=== PATIENT | male | born 1955 | race Caucasian/White ===

== ENCOUNTER 2022-01-23 12:46 | Inpatient (IN) ==
[2022-01-23] MEDS ORDERED: Sodium Bicarbonate 50 MEQ/50 ML VIAL IVC ONE (14:01)
[2022-01-23] MEDS ORDERED: Tranexamic Acid 1,000 MG/10 ML VIAL IR ONE (14:01)
[2022-01-23] MEDS ORDERED: *HR* Heparin 10,000 UNIT/10 ML VIAL IR ONE (14:01)
[2022-01-23] MEDS ORDERED: Albumin Human 25% 25 GM/100 ML IV.SOLN IVPB ONE (14:01)
[2022-01-23] MEDS ORDERED: *HR* Phenylephrine 10 MG/ML VIAL IVC ONE (14:01)
[2022-01-23] MEDS ORDERED: Mannitol 25% vial 12.5 GM/50 ML VIAL IVPB ONE (14:01)
[2022-01-23] MEDS ORDERED: Lidocaine 2% Syringe 100 MG/5 ML IVP ONE (14:01)
[2022-01-23] MEDS ORDERED: *HR* Magnesium Sulfate 2 GM/50 ML PIGGYBACK IVPB ONE (14:01)
[2022-01-23] MEDS ORDERED: Heparin 1,000 UNITS/500 mL IV.SOLN IR ONE (14:01)
[2022-01-23] MEDS ORDERED: Nitroglycerin 1,000 MCG/5 ML VIAL IV ONE (14:14)
[2022-01-23] MEDS ORDERED: Iopamidol - 370 200 ML INFUS..BTL ONE (14:14)
[2022-01-23] MEDS ORDERED: *HR* Heparin 10,000 UNIT/10 ML VIAL ONE (14:14)
[2022-01-23] MEDS ORDERED: 0.9 % Sodium Chloride 2,000 ML ONE (14:14)
[2022-01-23] MEDS ORDERED: Heparin 1,000 UNITS/500 mL 500 ML ONE ×2 (14:14→15:18)
[2022-01-23] MEDS ORDERED: *HR* FentaNYL (PF) 100 MCG/2 ML VIAL ONE (14:40)
[2022-01-23] MEDS ORDERED: *HR* Midazolam HCl 2 MG/2 ML VIAL ONE (14:40)
[2022-01-23] MEDS ORDERED: Perflutren Lipid Microsphere 1.3 ML in 0.9 % Sodium Chloride 8.7 ML IVP PRN ×2 (15:39→16:00)
[2022-01-23] MEDS ORDERED: D5% in Water 250 ML ONE (15:39)
[2022-01-23] MEDS ORDERED: *HR* Norepinephrine 4 MG/4 ML VIAL IVC ONE (15:39)
[2022-01-23] MEDS ORDERED: DOBUTamine 1,000 MG/250 ML BAG ONE ×2 (15:46→15:48)
[2022-01-23] MEDS ORDERED: NiCARdipine 2.5 MG/10 ML Syringe IVPB ONE (15:46)
[2022-01-23] MEDS ORDERED: *HR* Midazolam HCl 5 MG/5 ML VIAL IVP ONE (15:50)
[2022-01-23] MEDS ORDERED: *HR* FentaNYL (PF) 1,000 MCG/20 ML VIAL ONE (15:50)
[2022-01-23] MEDS ORDERED: *HR* Rocuronium Bromide 50 MG/5 ML VIAL ONE (15:55)
[2022-01-23] MEDS ORDERED: niCARdipine 20 MG/200 ML MLS IVC ONE (15:55)
[2022-01-23] MEDS ORDERED: Tranexamic Acid 1,000 MG/10 ML VIAL ONE (15:56)
[2022-01-23] MEDS ORDERED: *HR* Etomidate 20 MG/10 ML AMPUL IVP ONE (15:56)
[2022-01-23] MEDS ORDERED: Papaverine 60 MG/2 ML VIAL IVP ONE (15:57)
[2022-01-23] MEDS ORDERED: Protamine Sulfate 250 MG/25 ML VIAL IVP ONE (15:57)
[2022-01-23] MEDS ORDERED: Calcium Gluconate 1,000 MG/10 ML VIAL ONE (15:58)
[2022-01-23] MEDS ORDERED: CeFAZolin Syr 2,000MG/20 ML 2,000 MG/20 ML SYRINGE IVPB ONE (16:00)
[2022-01-23] MEDS ORDERED: Aspirin 81 MG TAB.CHEW PO ONE (16:01)
[2022-01-23] MEDS ORDERED: Norepinephrine 4 MG in 0.9 % Sodium Chloride 250 ML IVC PRN (16:09)
[2022-01-23] MEDS ORDERED: Chlorhexidine Rinse 15 ML MOUTHWASH MM ONE (16:15)
[2022-01-23] MEDS ORDERED: Heparin 15,000 UNIT in 0.9 % Sodium Chloride 500 ML IV ONE (16:15)
[2022-01-23] MEDS ORDERED: Buckersberg's Blood Cardioplegia PF ONE (16:15)
[2022-01-23] MEDS ORDERED: del Nido Cardioplegia Solution PF ONE ×2 (16:15)
[2022-01-23] MEDS ORDERED: Naloxone 0.4 MG/ML INJ IVP PRN (16:26)
[2022-01-23] MEDS ORDERED: Calcium Gluconate 1gm/50mL 1 GM/50 ML BAG IVPB PRN (16:26)
[2022-01-23] MEDS ORDERED: Insulin Regular, Human 100 UNIT/ML IV PRN (16:26)
[2022-01-23] MEDS ORDERED: Acetaminophen 325 MG TABLET PO PRN (16:26)
[2022-01-23] MEDS ORDERED: *HR* Dextrose 50 % in Water (Syg) 50 ML SYRINGE IVP PRN (16:26)
[2022-01-23 16:56] LABS: ABG Base Excess -3 mEq/L (-2 to 3); ABG Chloride 106 mEq/L (98-107); ABG Glucose 99 mg/dL (60-95); ABG HCO3 21 mEq/L (21-27); ABG Ionized Calcium 1.06 mmol/L (1.15-1.35); ABG Oxygen Saturation 100 % (95-98); ABG PCO2 33 mmHg (35-45); ABG PH 7.41 pH Units (7.32-7.45); ABG PO2 460 mmHg (85-104); ABG TCO2 22 mEq/L (20-26)
[2022-01-23 17:57] LABS: ABG Base Excess -3 mEq/L (-2 to 3); ABG Chloride 107 mEq/L (98-107); ABG Glucose 131 mg/dL (60-95); ABG HCO3 23 mEq/L (21-27); ABG Ionized Calcium 1.14 mmol/L (1.15-1.35); ABG Oxygen Saturation 97 % (95-98); ABG PCO2 46 mmHg (35-45); ABG PH 7.31 pH Units (7.32-7.45); ABG PO2 100 mmHg (85-104); ABG TCO2 25 mEq/L (20-26)
[2022-01-23] MEDS ORDERED: Vancomycin 1,000 MG VIAL ONE (18:06)
[2022-01-23 19:00] LABS: ABG Base Excess 4 mEq/L (-2 to 3); ABG Chloride 102 mEq/L (98-107); ABG Glucose 124 mg/dL (60-95); ABG HCO3 27 mEq/L (21-27); ABG Ionized Calcium 0.85 mmol/L (1.15-1.35); ABG Oxygen Saturation 100 % (95-98); ABG PCO2 35 mmHg (35-45); ABG PH 7.49 pH Units (7.32-7.45); ABG PO2 549 mmHg (85-104); ABG TCO2 28 mEq/L (20-26)
[2022-01-23 19:31] LABS: ABG Base Excess 1 mEq/L (-2 to 3); ABG Chloride 102 mEq/L (98-107); ABG Glucose 161 mg/dL (60-95); ABG HCO3 25 mEq/L (21-27); ABG Ionized Calcium 1.07 mmol/L (1.15-1.35); ABG Oxygen Saturation 100 % (95-98); ABG PCO2 40 mmHg (35-45); ABG PH 7.41 pH Units (7.32-7.45); ABG PO2 558 mmHg (85-104); ABG TCO2 27 mEq/L (20-26)
[2022-01-23] MEDS ORDERED: Vancomycin 1,000 MG in Sodium Chloride IRRigation 250 ML IR ONE (19:47)
[2022-01-23 20:02] LABS: ABG Base Excess -3 mEq/L (-2 to 3); ABG Chloride 104 mEq/L (98-107); ABG Glucose 163 mg/dL (60-95); ABG HCO3 23 mEq/L (21-27); ABG Ionized Calcium 1.23 mmol/L (1.15-1.35); ABG Oxygen Saturation 99 % (95-98); ABG PCO2 43 mmHg (35-45); ABG PH 7.33 pH Units (7.32-7.45); ABG PO2 133 mmHg (85-104); ABG TCO2 24 mEq/L (20-26)
[2022-01-23] MEDS ORDERED: Albumin Human 5% 12.5 GM/250 ML IV.SOLN ONE (20:07)
[2022-01-23] MEDS: Nitroprusside 50 MG in D5% in Water 250 ML IVC SCH (21:03)
[2022-01-23] MEDS: Pantoprazole 40 MG VIAL IVP SCH (21:03)
[2022-01-23] MEDS: Norepinephrine 4 MG/254 ML IV.SOLN IVC SCH (21:15)
[2022-01-23] MEDS: DOBUTamine 1,000 MG/250 ML BAG IVC SCH (21:15)
[2022-01-23 21:29] LABS: ABG Base Excess -1 mEq/L (-2 to 3); ABG HCO3 27 mEq/L (21-27); ABG Oxygen Saturation 100 % (95-98); ABG PCO2 54 mmHg (35-45); ABG PO2 214 mmHg (85-104); ABG TCO2 28 mEq/L (20-26); Blood Gas VT 550 cc
[2022-01-23 21:52] LABS: Basophils % 0.2 %; Eosinophils # 0.1 K/mcL (0.0-0.6); Eosinophils % 0.4 %; Hematocrit 37.2 % (37.5-50.1); Hemoglobin 12.8 g/dL (12.9-16.9); Immature Granulocytes % 0.7 % (0-4); Lymphocytes # 1.7 K/mcL (0.6-4.6); Lymphocytes % 7.5 %; Mean Corpuscular HGB Conc 34.4 g/dL (31.6-35.5); Mean Corpuscular Hemoglobin 31.3 pg (28.0-33.3); Mean Platelet Volume 10.5 fL (9.4-12.4); Monocytes # 1.3 K/mcL (0.0-1.3); Monocytes % 5.7 %; Neutrophils # 18.9 K/mcL (1.6-8.9); Platelet Count 167 K/mcL (140-400); Red Blood Count 4.09 M/mcL (4.19-5.50); Red Cell Distribution Width 12.4 % (11.5-14.5); Segmented Neutrophils % 85.5 %; White Blood Count 22.1 K/mcL (4.3-11.1)
[2022-01-23] MEDS ORDERED: Dexmedetomidine HCl 400 MCG/100 ML MLS IVC ONE (21:57)
[2022-01-23 22:00] LABS: Estimated Average Glucose 114 mg/dl; Hemoglobin A1C 5.6 %
[2022-01-23] MEDS: Albumin Human 5% 12.5 GM/250 ML IV.SOLN IVPB PRN ×3 (22:00→23:35)
[2022-01-23 22:02] LABS: INR 1.4; Prothrombin Time 15.4 Seconds (9.4-12.1)
[2022-01-23 22:04] LABS: Activated Partial Thrombo Time 29.5 Seconds (26.0-36.0)
[2022-01-23] MEDS: Dexmedetomidine HCl 400 MCG/100 ML MLS IVC SCH (22:05)
[2022-01-23] MEDS: *HR* FentaNYL (PF) 100 MCG/2 ML VIAL IVP PRN (22:05)
[2022-01-23 22:17] LABS: BUN/Creatinine Ratio 16 (6-26); Blood Urea Nitrogen 12 mg/dL (8-23); Carbon Dioxide 26 mEq/L (23-29); Chloride 104 mEq/L (98-107); Cholesterol 68 mg/dL (< 200); Glucose 169 mg/dL (70-105); HDL Cholesterol 17 mg/dL (40-59); LDL Cholesterol,Calculated 36 mg/dL (< 100); Magnesium 2.6 mg/dL (1.6-2.6); Osmolality,Calculated 292 (280-300); Potassium 4.3 mEq/L (3.5-5.1); Sodium 139 mEq/L (136-145); Triglycerides 77 mg/dL (< 150); eGFR For African Americans > 60 (> 60); eGFR For Non-African Americans > 60 (> 60)
[2022-01-23] MEDS: *HR* OxyCODONE/APAP 5/325 TABLET PO PRN (22:51)
[2022-01-23] MEDS: Chlorhexidine Rinse 15 ML MOUTHWASH MM SCH (23:55)
[2022-01-23] MEDS: CeFAZolin 2 GM/120 ML BAG IVPB SCH (23:56)
[2022-01-24] MEDS: Albumin Human 5% 12.5 GM/250 ML IV.SOLN IVPB PRN ×3 (00:15→05:19)
[2022-01-24] MEDS: *HR* FentaNYL (PF) 100 MCG/2 ML VIAL IVP PRN ×4 (00:36→07:59)
[2022-01-24 01:15] LABS: ABG Base Excess 2 mEq/L (-2 to 3); ABG HCO3 27 mEq/L (21-27); ABG Oxygen Saturation 97 % (95-98); ABG PCO2 42 mmHg (35-45); ABG PH 7.41 pH Units (7.32-7.45); ABG PO2 90 mmHg (85-104); ABG TCO2 28 mEq/L (20-26); Blood Gas VT 550 cc
[2022-01-24 03:29] LABS: Basophils % 0.2 %; Eosinophils % 0.2 %; Hematocrit 27.5 % (37.5-50.1); Immature Granulocytes % 0.4 % (0-4); Lymphocytes # 0.6 K/mcL (0.6-4.6); Lymphocytes % 6.6 %; Mean Corpuscular HGB Conc 34.2 g/dL (31.6-35.5); Mean Corpuscular Hemoglobin 30.7 pg (28.0-33.3); Mean Corpuscular Volume 89.9 fL (83.0-100.0); Monocytes # 0.6 K/mcL (0.0-1.3); Monocytes % 6.2 %; Neutrophils # 8.3 K/mcL (1.6-8.9); Platelet Count 118 K/mcL (140-400); Red Blood Count 3.06 M/mcL (4.19-5.50); Red Cell Distribution Width 12.3 % (11.5-14.5); Segmented Neutrophils % 86.4 %
[2022-01-24 03:32] LABS: Hemoglobin 9.4 g/dL (12.9-16.9); White Blood Count 9.6 K/mcL (4.3-11.1)
[2022-01-24 03:37] LABS: INR 1.5; Prothrombin Time 16.4 Seconds (9.4-12.1)
[2022-01-24 03:40] LABS: Activated Partial Thrombo Time 39.1 Seconds (26.0-36.0)
[2022-01-24 03:46] LABS: BUN/Creatinine Ratio 14 (6-26); Blood Urea Nitrogen 11 mg/dL (8-23); Calcium 7.6 mg/dL (8.6-10.3); Carbon Dioxide 28 mEq/L (23-29); Chloride 105 mEq/L (98-107); Glucose 131 mg/dL (70-105); Magnesium 2.1 mg/dL (1.6-2.6); Osmolality,Calculated 287 (280-300); Potassium 3.7 mEq/L (3.5-5.1); Sodium 138 mEq/L (136-145); eGFR For African Americans > 60 (> 60); eGFR For Non-African Americans > 60 (> 60)
[2022-01-24 03:53] LABS: ABG Base Excess 1 mEq/L (-2 to 3); ABG HCO3 25 mEq/L (21-27); ABG Oxygen Saturation 97 % (95-98); ABG PCO2 38 mmHg (35-45); ABG PH 7.42 pH Units (7.32-7.45); ABG PO2 91 mmHg (85-104); ABG TCO2 26 mEq/L (20-26); Blood Gas VT 550 cc
[2022-01-24] MEDS: *HR* OxyCODONE/APAP 5/325 TABLET PO PRN ×4 (04:06→20:47)
[2022-01-24] MEDS ORDERED: Calcium Gluconate 1gm/50mL 1 GM/50 ML BAG IVPB PRN (04:35)
[2022-01-24] MEDS: Calcium Gluconate 1gm/50mL 1 GM/50 ML BAG IVPB PRN ×2 (04:43→13:54)
[2022-01-24 04:46] LABS: ABG Base Excess 2 mEq/L (-2 to 3); ABG HCO3 26 mEq/L (21-27); ABG Oxygen Saturation 97 % (95-98); ABG PCO2 39 mmHg (35-45); ABG PH 7.43 pH Units (7.32-7.45); ABG PO2 83 mmHg (85-104); ABG TCO2 27 mEq/L (20-26); Blood Gas Pressure Support 8 cm H2O
[2022-01-24] MEDS: *HR* Enoxaparin 40 MG/0.4 ML SYRINGE SQ SCH (05:19)
[2022-01-24] MEDS: CeFAZolin 2 GM/120 ML BAG IVPB SCH ×2 (07:42→16:38)
[2022-01-24] MEDS: Pantoprazole 40 MG VIAL IVP SCH (07:45)
[2022-01-24] MEDS: Chlorhexidine Rinse 15 ML MOUTHWASH MM SCH ×2 (07:46→20:46)
[2022-01-24] MEDS: Aspirin 81 MG TAB.CHEW PO SCH (07:47)
[2022-01-24] MEDS: Albumin Human 5% 12.5 GM/250 ML IV.SOLN IVC SCH ×2 (09:23→10:37)
[2022-01-24] MEDS: Dexmedetomidine HCl 400 MCG/100 ML MLS IVC SCH (12:27)
[2022-01-24 12:46] LABS: VBG Ionized Calcium 1.02 mmol/L (1.15-1.35)
[2022-01-24 13:07] LABS: Calcium 7.8 mg/dL (8.6-10.3); Magnesium 2.3 mg/dL (1.6-2.6); Phosphorous 2.4 mg/dL (2.7-4.5); Potassium 3.8 mEq/L (3.5-5.1)
[2022-01-24] MEDS ORDERED: Bumetanide 1 MG/4 ML VIAL IVP ONE (14:16)
[2022-01-24] MEDS: DOBUTamine 1,000 MG/250 ML BAG IVC SCH (19:25)
[2022-01-24] MEDS: Norepinephrine 4 MG/254 ML IV.SOLN IVC SCH (20:41)
[2022-01-24] MEDS: Nitroprusside 50 MG in D5% in Water 250 ML IVC SCH (20:52)
[2022-01-25] MEDS: CeFAZolin 2 GM/120 ML BAG IVPB SCH ×3 (00:15→17:25)
[2022-01-25] MEDS: *HR* OxyCODONE/APAP 5/325 TABLET PO PRN ×2 (03:28→09:06)
[2022-01-25] MEDS: Dexmedetomidine HCl 400 MCG/100 ML MLS IVC SCH ×3 (03:31→21:17)
[2022-01-25 03:58] LABS: Basophils % 0.2 %; Eosinophils % 0.2 %; Hemoglobin 10.2 g/dL (12.9-16.9); Immature Granulocytes % 0.7 % (0-4); Lymphocytes # 1.1 K/mcL (0.6-4.6); Lymphocytes % 6.7 %; Mean Corpuscular Hemoglobin 31.3 pg (28.0-33.3); Mean Platelet Volume 10.7 fL (9.4-12.4); Monocytes # 1.3 K/mcL (0.0-1.3); Monocytes % 8.1 %; Neutrophils # 13.9 K/mcL (1.6-8.9); Platelet Count 152 K/mcL (140-400); Red Blood Count 3.26 M/mcL (4.19-5.50); Red Cell Distribution Width 12.7 % (11.5-14.5); Segmented Neutrophils % 84.1 %
[2022-01-25 04:00] LABS: White Blood Count 16.5 K/mcL (4.3-11.1)
[2022-01-25 04:07] LABS: VBG Ionized Calcium 1.05 mmol/L (1.15-1.35)
[2022-01-25] MEDS: Norepinephrine 4 MG/254 ML IV.SOLN IVC SCH ×2 (04:09→10:40)
[2022-01-25 04:17] LABS: BUN/Creatinine Ratio 16 (6-26); Blood Urea Nitrogen 16 mg/dL (8-23); Calcium 8.3 mg/dL (8.6-10.3); Carbon Dioxide 27 mEq/L (23-29); Chloride 104 mEq/L (98-107); Glucose 129 mg/dL (70-105); Magnesium 2.6 mg/dL (1.6-2.6); Osmolality,Calculated 287 (280-300); Phosphorous 2.2 mg/dL (2.7-4.5); Potassium 3.7 mEq/L (3.5-5.1); Sodium 137 mEq/L (136-145); eGFR For African Americans > 60 (> 60); eGFR For Non-African Americans > 60 (> 60)
[2022-01-25] MEDS: Potassium Chloride 40 MEQ/200 ML BAG IVPB PRN (05:13)
[2022-01-25] MEDS: *HR* Enoxaparin 40 MG/0.4 ML SYRINGE SQ SCH (05:13)
[2022-01-25] MEDS: Pantoprazole 40 MG VIAL IVP SCH (07:34)
[2022-01-25] MEDS: Aspirin 81 MG TAB.CHEW PO SCH (07:39)
[2022-01-25] MEDS: Chlorhexidine Rinse 15 ML MOUTHWASH MM SCH ×2 (07:39→20:37)
[2022-01-25] MEDS ORDERED: methylPREDNISolone 125 MG/2 ML VIAL IVP ONE (12:00)
[2022-01-25] MEDS ORDERED: Bumetanide 1 MG/4 ML VIAL IVP ONE (12:02)
[2022-01-25] MEDS: Albumin Human 5% 12.5 GM/250 ML IV.SOLN IVC SCH ×2 (12:31→13:28)
[2022-01-25] MEDS: Acetylcysteine 10% 2 ML INHSOL IH SCH ×4 (12:43→23:53)
[2022-01-25] MEDS: Albuterol 2.5 MG/3 ML NEBULIZER IH SCH ×4 (12:43→23:53)
[2022-01-25] MEDS: Nitroprusside 50 MG in D5% in Water 250 ML IVC SCH (20:30)
[2022-01-25] MEDS: DOBUTamine 1,000 MG/250 ML BAG IVC SCH (21:15)
[2022-01-26 03:26] LABS: VBG Ionized Calcium 1.06 mmol/L (1.15-1.35)
[2022-01-26 03:33] LABS: Basophils % 0.1 %; Hemoglobin 9.4 g/dL (12.9-16.9); Red Cell Distribution Width 12.3 % (11.5-14.5)
[2022-01-26 03:34] LABS: Hematocrit 27.5 % (37.5-50.1); Immature Granulocytes % 0.7 % (0-4); Immature Platelets 9.5 % (1.1-6.1); Lymphocytes # 0.5 K/mcL (0.6-4.6); Mean Corpuscular HGB Conc 34.2 g/dL (31.6-35.5); Mean Corpuscular Hemoglobin 31.5 pg (28.0-33.3); Mean Corpuscular Volume 92.3 fL (83.0-100.0); Mean Platelet Volume 11.4 fL (9.4-12.4); Monocytes # 0.6 K/mcL (0.0-1.3); Monocytes % 4.8 %; Platelet Count 130 K/mcL (140-400); Red Blood Count 2.98 M/mcL (4.19-5.50); Segmented Neutrophils % 90.4 %; White Blood Count 12.2 K/mcL (4.3-11.1)
[2022-01-26 03:49] LABS: BUN/Creatinine Ratio 21 (6-26); Blood Urea Nitrogen 16 mg/dL (8-23); Calcium 8.2 mg/dL (8.6-10.3); Carbon Dioxide 28 mEq/L (23-29); Chloride 101 mEq/L (98-107); Glucose 159 mg/dL (70-105); Magnesium 2.2 mg/dL (1.6-2.6); Osmolality,Calculated 285 (280-300); Phosphorous 1.5 mg/dL (2.7-4.5); Potassium 3.2 mEq/L (3.5-5.1); Sodium 135 mEq/L (136-145); eGFR For African Americans > 60 (> 60); eGFR For Non-African Americans > 60 (> 60)
[2022-01-26] MEDS: Albuterol 2.5 MG/3 ML NEBULIZER IH SCH ×6 (03:52→23:38)
[2022-01-26] MEDS: Acetylcysteine 10% 2 ML INHSOL IH SCH ×6 (03:52→23:38)
[2022-01-26] MEDS: Dexmedetomidine HCl 400 MCG/100 ML MLS IVC SCH ×2 (06:06→10:39)
[2022-01-26] MEDS: *HR* Enoxaparin 40 MG/0.4 ML SYRINGE SQ SCH (06:06)
[2022-01-26] MEDS: Potassium Chloride 40 MEQ/200 ML BAG IVPB PRN (06:14)
[2022-01-26] MEDS: Chlorhexidine Rinse 15 ML MOUTHWASH MM SCH ×2 (07:53→20:46)
[2022-01-26] MEDS: Aspirin 81 MG TAB.CHEW PO SCH (07:53)
[2022-01-26] MEDS: Pantoprazole 40 MG VIAL IVP SCH (07:53)
[2022-01-26] MEDS: Norepinephrine 4 MG/254 ML IV.SOLN IVC SCH (07:53)
[2022-01-26] MEDS ORDERED: *HR* Dextrose 50 % in Water (Syg) 50 ML SYRINGE IVP PRN (09:55)
[2022-01-26] MEDS ORDERED: Naloxone 0.4 MG/ML INJ IVP PRN (09:55)
[2022-01-26] MEDS ORDERED: Dextrose Gel 15 GM/37.5 ML TUBE PO PRN ×2 (09:55)
[2022-01-26] MEDS ORDERED: Acetaminophen 325 MG TABLET PO PRN (09:55)
[2022-01-26] MEDS ORDERED: D5% in Water 1,000 ML IVC PRN (09:55)
[2022-01-26] MEDS ORDERED: *HR* OxyCODONE/APAP 5/325 TABLET PO PRN (09:55)
[2022-01-26] MEDS: DOBUTamine 1,000 MG/250 ML BAG IVC SCH (10:40)
[2022-01-26] MEDS: Insulin LISPRO 300 UNITS/3 ML VIAL SUBQ SCH ×3 (12:27→20:45)
[2022-01-26] MEDS ORDERED: Potassium Phosphate 44 MEQ in 0.9 % Sodium Chloride 250 ML IVPB ONE (13:19)
[2022-01-27 04:00] LABS: Basophils % 0.1 %; Eosinophils % 0.2 %; Hematocrit 27.5 % (37.5-50.1); Hemoglobin 9.4 g/dL (12.9-16.9); Immature Granulocytes % 0.5 % (0-4); Lymphocytes # 1.4 K/mcL (0.6-4.6); Lymphocytes % 10.6 %; Mean Corpuscular HGB Conc 34.2 g/dL (31.6-35.5); Mean Corpuscular Hemoglobin 31.8 pg (28.0-33.3); Mean Corpuscular Volume 92.9 fL (83.0-100.0); Mean Platelet Volume 11.4 fL (9.4-12.4); Monocytes # 1.1 K/mcL (0.0-1.3); Monocytes % 8.1 %; Neutrophils # 10.6 K/mcL (1.6-8.9); Platelet Count 166 K/mcL (140-400); Red Blood Count 2.96 M/mcL (4.19-5.50); Red Cell Distribution Width 12.9 % (11.5-14.5); Segmented Neutrophils % 80.5 %; White Blood Count 13.1 K/mcL (4.3-11.1)
[2022-01-27 04:11] LABS: VBG Ionized Calcium 1.09 mmol/L (1.15-1.35)
[2022-01-27 04:19] LABS: BUN/Creatinine Ratio 21 (6-26); Blood Urea Nitrogen 15 mg/dL (8-23); Carbon Dioxide 27 mEq/L (23-29); Chloride 102 mEq/L (98-107); Glucose 98 mg/dL (70-105); Magnesium 2.2 mg/dL (1.6-2.6); Osmolality,Calculated 283 (280-300); Phosphorous 1.8 mg/dL (2.7-4.5); Potassium 3.8 mEq/L (3.5-5.1); Sodium 136 mEq/L (136-145); eGFR For African Americans > 60 (> 60); eGFR For Non-African Americans > 60 (> 60)
[2022-01-27] MEDS: Acetylcysteine 10% 2 ML INHSOL IH SCH ×6 (04:28→23:03)
[2022-01-27] MEDS: Albuterol 2.5 MG/3 ML NEBULIZER IH SCH ×6 (04:28→23:03)
[2022-01-27] MEDS: *HR* Enoxaparin 40 MG/0.4 ML SYRINGE SQ SCH (05:27)
[2022-01-27] MEDS: Chlorhexidine Rinse 15 ML MOUTHWASH MM SCH ×2 (08:45→20:35)
[2022-01-27] MEDS: Aspirin 81 MG TAB.CHEW PO SCH (08:46)
[2022-01-27] MEDS: Insulin LISPRO 300 UNITS/3 ML VIAL SUBQ SCH ×4 (08:46→20:36)
[2022-01-27] MEDS: Pantoprazole 40 MG VIAL IVP SCH (08:46)
[2022-01-27] MEDS: DOBUTamine 1,000 MG/250 ML BAG IVC SCH (10:33)
[2022-01-27] MEDS: Dexmedetomidine HCl 400 MCG/100 ML MLS IVC SCH (10:34)
[2022-01-27] MEDS: Budesonide/Formoterol 160/4.5 1 PUFF INH IH SCH (19:40)
[2022-01-28] MEDS: Albuterol 2.5 MG/3 ML NEBULIZER IH SCH ×3 (03:37→12:00)
[2022-01-28] MEDS: Acetylcysteine 10% 2 ML INHSOL IH SCH ×3 (03:37→12:00)
[2022-01-28 04:03] LABS: VBG Ionized Calcium 1.12 mmol/L (1.15-1.35)
[2022-01-28 04:19] LABS: BUN/Creatinine Ratio 21 (6-26); Blood Urea Nitrogen 14 mg/dL (8-23); Calcium 8.2 mg/dL (8.6-10.3); Carbon Dioxide 26 mEq/L (23-29); Chloride 103 mEq/L (98-107); Glucose 99 mg/dL (70-105); Magnesium 2.2 mg/dL (1.6-2.6); Osmolality,Calculated 281 (280-300); Phosphorous 2.1 mg/dL (2.7-4.5); Potassium 4.1 mEq/L (3.5-5.1); Sodium 135 mEq/L (136-145); eGFR For African Americans > 60 (> 60); eGFR For Non-African Americans > 60 (> 60)
[2022-01-28] MEDS: *HR* Enoxaparin 40 MG/0.4 ML SYRINGE SQ SCH (07:28)
[2022-01-28] MEDS: Insulin LISPRO 300 UNITS/3 ML VIAL SUBQ SCH ×4 (07:28→20:55)
[2022-01-28] MEDS: Aspirin 81 MG TAB.CHEW PO SCH (07:28)
[2022-01-28] MEDS: Chlorhexidine Rinse 15 ML MOUTHWASH MM SCH ×2 (07:29→20:59)
[2022-01-28] MEDS: Pantoprazole 40 MG VIAL IVP SCH (07:29)
[2022-01-28] MEDS: Budesonide/Formoterol 160/4.5 1 PUFF INH IH SCH ×2 (08:17→19:53)
[2022-01-28 09:27] LABS: Hematocrit 30.7 % (37.5-50.1); Hemoglobin 10.2 g/dL (12.9-16.9); Mean Corpuscular HGB Conc 33.2 g/dL (31.6-35.5); Mean Corpuscular Hemoglobin 30.8 pg (28.0-33.3); Mean Corpuscular Volume 92.7 fL (83.0-100.0); Mean Platelet Volume 10.4 fL (9.4-12.4); Platelet Count 213 K/mcL (140-400); Red Blood Count 3.31 M/mcL (4.19-5.50); White Blood Count 9.3 K/mcL (4.3-11.1)
[2022-01-28] MEDS ORDERED: Albuterol 2.5 MG/3 ML NEBULIZER IH PRN (14:27)
[2022-01-28] MEDS ORDERED: NON-FORMULARY MEDICATION 1 EACH EACH (Atorvastatin Calcium [Lipitor] 20 MG Tablet) PO SCH (21:00)
[2022-01-29 06:06] LABS: Hematocrit 32.8 % (37.5-50.1); Hemoglobin 10.7 g/dL (12.9-16.9); Mean Corpuscular HGB Conc 32.6 g/dL (31.6-35.5); Mean Corpuscular Hemoglobin 30.7 pg (28.0-33.3); Mean Platelet Volume 10.2 fL (9.4-12.4); Platelet Count 241 K/mcL (140-400); Red Blood Count 3.49 M/mcL (4.19-5.50); Red Cell Distribution Width 12.8 % (11.5-14.5); White Blood Count 10.5 K/mcL (4.3-11.1)
[2022-01-29] MEDS: *HR* Enoxaparin 40 MG/0.4 ML SYRINGE SQ SCH (06:19)
[2022-01-29 06:27] LABS: BUN/Creatinine Ratio 21 (6-26); Blood Urea Nitrogen 16 mg/dL (8-23); Calcium 8.6 mg/dL (8.6-10.3); Carbon Dioxide 26 mEq/L (23-29); Chloride 103 mEq/L (98-107); Glucose 93 mg/dL (70-105); Osmolality,Calculated 283 (280-300); Potassium 4.2 mEq/L (3.5-5.1); Sodium 136 mEq/L (136-145); eGFR For African Americans > 60 (> 60); eGFR For Non-African Americans > 60 (> 60)
[2022-01-29] MEDS: Budesonide/Formoterol 160/4.5 1 PUFF INH IH SCH ×2 (07:46→20:35)
[2022-01-29] MEDS: Insulin LISPRO 300 UNITS/3 ML VIAL SUBQ SCH ×4 (08:02→20:11)
[2022-01-29] MEDS ORDERED: *HR* Metoprolol 5 MG/5 ML VIAL IVP ONE (09:33)
[2022-01-29] MEDS: Aspirin 81 MG TAB.CHEW PO SCH (09:34)
[2022-01-29] MEDS: Chlorhexidine Rinse 15 ML MOUTHWASH MM SCH ×2 (09:34→20:18)
[2022-01-29] MEDS: Loratadine 10 MG TABLET PO SCH (09:34)
[2022-01-30] MEDS ORDERED: *HR* Metoprolol 5 MG/5 ML VIAL IVP ONE (03:29)
[2022-01-30 03:53] LABS: Hematocrit 32.6 % (37.5-50.1); Hemoglobin 10.8 g/dL (12.9-16.9); Mean Corpuscular HGB Conc 33.1 g/dL (31.6-35.5); Mean Corpuscular Hemoglobin 30.7 pg (28.0-33.3); Mean Corpuscular Volume 92.6 fL (83.0-100.0); Mean Platelet Volume 10.5 fL (9.4-12.4); Platelet Count 309 K/mcL (140-400); Red Blood Count 3.52 M/mcL (4.19-5.50); Red Cell Distribution Width 12.7 % (11.5-14.5); White Blood Count 12.4 K/mcL (4.3-11.1)
[2022-01-30 04:10] LABS: BUN/Creatinine Ratio 24 (6-26); Blood Urea Nitrogen 18 mg/dL (8-23); Calcium 8.7 mg/dL (8.6-10.3); Carbon Dioxide 25 mEq/L (23-29); Chloride 102 mEq/L (98-107); Glucose 91 mg/dL (70-105); Magnesium 1.8 mg/dL (1.6-2.6); Osmolality,Calculated 283 (280-300); Potassium 4.4 mEq/L (3.5-5.1); Sodium 136 mEq/L (136-145); eGFR For African Americans > 60 (> 60); eGFR For Non-African Americans > 60 (> 60)
[2022-01-30] MEDS: *HR* Enoxaparin 40 MG/0.4 ML SYRINGE SQ SCH (05:31)
[2022-01-30] MEDS: Budesonide/Formoterol 160/4.5 1 PUFF INH IH SCH (07:37)
[2022-01-30] MEDS: Loratadine 10 MG TABLET PO SCH (08:12)
[2022-01-30] MEDS: Aspirin 81 MG TAB.CHEW PO SCH (08:12)
[2022-01-30] MEDS: Chlorhexidine Rinse 15 ML MOUTHWASH MM SCH (08:12)
[2022-01-30] MEDS: Insulin LISPRO 300 UNITS/3 ML VIAL SUBQ SCH (08:12)
[2022-01-30] MEDS ORDERED: *HR* Amiodarone 200 MG TABLET PO SCH (09:00)
[2022-01-30 11:49] VITALS: BP 97/66; PULSE 81; TEMP 97.9; O2SAT 95
[2022-02-02] MEDS ORDERED: *HR* Amiodarone 200 MG TABLET PO SCH (09:00)
== END 2022-01-30 12:40 | DRG 233 ==
LOC: 2NENU → ICNU → SUATTDRO 16:07 → 2NNU 01-27 16:21
PROVIDERS: ADMIT Student in an Organized Health Care Education/Training Program; ATTEND Internal Medicine